=== PATIENT | male | born 1950 | race Hispanic/Latino ===

== ENCOUNTER → 2018-10-14 | Outpatient (CLI) | payer MEDICARE ==
[~2018-10-14] MED LIST: DEXILANT60 MG PO; ESIDRIX25 MG PO; METFORMIN HCL500 MG PO; VERAPAMIL ER120 MG PO; VITAMIN B COMP1 EACH PO
--- NOTE | 2018-10-14 08:50 | Diagnostic Imaging Report ---
Barium swallow with upper GI MANAGER MEDIA(S): Marissa Wilkinson MD Comparison: None. Procedure: Barium swallow and upper GI fluoroscopic images obtained with air and barium contrast in a variety of positions. Fluoroscopy Time: 1.9 minutes; total radiation dose 80.7 mGy DISCUSSION: PIT STEWARD: The bowel gas pattern is non-obstructive. SWALLOW: Grossly unremarkable. ESOPHAGUS: Mucosa is unremarkable. Predominately primary contractions. Moderate to severe inducible gastroesophageal reflux. STOMACH: Unremarkable mucosal pattern. Small paraesophageal hiatal hernia. SMALL BOWEL: Bulb and sweep are normal. Duodenal-jejunal junction is in the normal expected position. Visualized proximal small bowel loops are unremarkable. IMPRESSION: Moderate to severe inducible gastroesophageal reflux. Small paraesophageal hiatal hernia. Signed by: Dr. Marissa Wilkinson MD on 10/14/2018 8:46 AM
== END ==
LOC: DX 07:26
PROVIDERS: ATTEND Family Medicine
DX: K21.9 Gastro-esophageal reflux disease without esophagitis (principal)
CPT/HCPCS: 74246

== ENCOUNTER → 2022-01-31 | Outpatient (CLI) | payer MEDICARE | END | disposition home or self-care (01) | LOC: RAD 09:07 → EDSTATUS 02-07 12:57 | PROVIDERS: ATTEND Family Medicine | DX: R05.3 Chronic cough (principal) | CPT/HCPCS: 71046 ==